=== PATIENT | female | born 1985 | race Caucasian/White ===

== ENCOUNTER → 2018-07-29 | Outpatient (CLI) | payer BC | LOC: FIMAGING 12:51 | PROVIDERS: ATTEND Advanced Practice Midwife | DX: O09.522 Supervision of elderly multigravida, second trimester (principal); O09.292 Supervision of pregnancy with other poor reproductive or obstetric history, second trimester; Z3A.19 19 weeks gestation of pregnancy ==

== ENCOUNTER 2018-12-12 16:37 | Inpatient (IN) | payer BC ==
[2018-12-12] MEDS ORDERED: EPSOM SALT 454 GM TP PRN (17:18)
[2018-12-12] MEDS ORDERED: LR 1,000 ML IV PRN (17:18)
[2018-12-12] MEDS ORDERED: OLIVE OIL 118 ML BTL MISC PRN (17:18)
[2018-12-12] MEDS ORDERED: IBUPROFEN 600 MG TAB PO PRN (17:18)
[2018-12-12] MEDS ORDERED: MISOPROSTOL 200 MCG TAB PR PRN (17:18)
[2018-12-12] MEDS ORDERED: LIDOCAINE 1% 300 MG/30 ML SDV SC PRN (17:18)
[2018-12-12] MEDS ORDERED: OXYTOCIN/RINGERS LACTATE 1,000 ML IV PRN (17:18)
[2018-12-12 17:51] LABS: PLATELET COUNT 161 10^3/uL (150-400)
[2018-12-12] MEDS ORDERED: OXYTOCIN 10 UNIT/ML VIAL ONE (18:30)
[2018-12-12] MEDS ORDERED: AMMONIA AROMATIC 1 EACH AMP IH ONE (18:30)
[2018-12-12] MEDS ORDERED: TERBUTALINE SULFATE 1 MG/ML VIAL ONE (18:30)
--- NOTE | 2018-12-12 19:05 | PDGENHP ---
History and Physical History and Physical: Care: [facility] HPI: Patient is a 33 yo G3 P 2 @ 39 weeks that presents to L&D with complaints of elevated blood pressure in the office and +1 protein; 4-5 cm in the office. States she had a lot of contractions last night that were getting stronger but then went away. EDC: 12/19/2018 which is based on an Ultrasound at 8 weeks. Her is complicated by: hx of previous LTCS for a breech presentation followed by a successful vaginal and AMA. Surgical report was reviewed and confirmed LTCS, consultation completed with OB @ 35 weeks and consents were signed Review of Systems: Constitutional: Denies any fever, chills, or fatigue HEENT: denies any visual changes, difficulty swallowing, hearing loss Cardiovascular: Denies any chest pain, palpitations, leg swelling Respiratory: denies any cough, wheezing, or shortness of breathe GI: Denies any nausea, vomiting, diarrhea, constipation : denies any dysuria, urgency, frequency, vaginal bleeding Musculoskeletal: denies any muscle or bone pain Skin: denies any rashes Neuro: denies any headache, seizures, lightheadedness, dizziness, or loss of consciousness Psychiatric: denies any depression, anxiety, or SI/HI thoughts HISTORY: Previous OB history: LTCS for breech; successful vaginal Past medical history: None significant Past surgical history: wisdom teeth Social: Denies any alcohol, tobacco, or drug use. Family history: Not relevant Medications: PNV [ ] Allergies (list reaction): Neosporin LABS: Rh: A+ ABS: Neg Rubella: Immune HbsAg: NR HIV: NR VDRL: NR 1hr: 95 GC: Neg Chlamydia: Neg Pap: Normal 2018 per pt GBS: neg BMI: (prepreg) 22 PHYSICAL EXAM: Constitutional: WN, A&Ox3 HEENT: normocephalic atraumatic, supple Skin: Warm, dry, intact Heart: RRR, no murmur Chest: CTA-B Abdomen: Soft, nontender, gravid SVE: 5/70/-1; after consent given membranes ruptured with scant amount of clear fluid returned Extremities: neg edema, negative homans sign Neuro: grossly normal Psych: normal affect assessment: FHT baseline 130 to 150 + accels, initially variable decels noted which has since resolved, moderate variability, + accels Contractions: toco q irregular Assessment: 1) 33 yo G 3 P 2 with IUP@ 39 2) latent labor; advanced dilatation; hx of LTCS 3) GBS neg 4) Cat 2 to 1 FHR tracing Plan: 1) Admit to L&D 2) Dr Hooker notified of admit and POC; will be staying in house 3) Augment labor with SROM; consider pitocin if indicated 4) Anticipate
[2018-12-12] MEDS ORDERED: ONDANSETRON 4 MG/2 ML VIAL ONE (19:26)
[2018-12-12] MEDS ORDERED: BUPIVACAINE 0.25% 10 ML SDV ONE (19:27)
[2018-12-12] MEDS ORDERED: PHENYLEPHRINE HCL 100 MCG/ML SYR ONE (19:27)
[2018-12-12] MEDS ORDERED: PHENYLEPHRINE HCL 100 MCG/ML SYR IVP PRN (19:28)
--- NOTE | 2018-12-12 19:29 | PREANESOB ---
Obstetric Pre-Anesthesia Info - General Info : 3 Para: 2 MADELEINE: 12/19/18 Gestational Age: 39 week(s) and 0 day(s) - Info Status: Full Term Monitors: External FHR Pattern: Reassuring - Labor Status Cervical Dilation per last OB SVE: 5 Indications for Labor Analgesia: Pain Control Labor Epidural: Proposed Anesthesia Allergies/Adverse Reactions: Allergy/AdvReac Type Severity Reaction Status Date / Time bacitracin Allergy Verified 12/12/18 17:49 [From Neosporin ([id number])] neomycin Allergy Verified 12/12/18 17:49 [From Neosporin ([id number])] polymyxin B Allergy Verified 12/12/18 17:49 [From Neosporin ([id number])] Home Medications: Medication Instructions Recorded CALCIUM CARBONATE/VITAMIN D3 600 mg PO DAILY 07/10/12 [CALCIUM + D 600 MG TABLET] Vit/Iron Fum/Folic AC 1 each PO 07/10/12 [ Vitamin Formula Tb] Herbals/Supplements -Info Only 05/27/14 Hydrocodone/APAP 5/325 [[place] 1 - 2 tab PO Q4 PRN #10 tab 05/30/14 5/325 (*)] Ibuprofen [Motrin (*)] 600 mg PO Q6 PRN #1 tab 05/30/14 Visit Medications: Generic Name Dose Route Start Last Admin Trade Name Freq PRN Reason Stop Dose Admin Lactated Ringer's 1,000 mls @ 0 mls/hr 12/12/18 17:18 Lr IV 12/13/18 17:17 PRN PRN SEE PROTOCOL CONDITIONS Protocol Per Protocol Oxytocin/Lactated Ringer's 1,000 mls @ 125 mls/hr 12/12/18 17:18 Pitocin 20 Units/Lr (Premix) IV PRN PRN Post bleeding Ibuprofen 600 mg 12/12/18 17:18 Motrin PO ONCE PRN post , pain Lidocaine HCl 300 mg 12/12/18 17:18 Lidocaine Hcl 1% SC 06/10/19 17:17 ONCE PRN episiotomy Magnesium Sulfate 454 gm 12/12/18 17:18 Epsom Salt TP 06/10/19 17:17 Q1H PRN perineal discomfort Misoprostol 800 - 1,000 mcg 12/12/18 17:18 Cytotec TX ONCE PRN Vaginal Atony/Bleeding [place] Oil 118 ml 12/12/18 17:18 Sweet Oil MISC 06/10/19 17:17 ONCE PRN perineal massage Discontinued Medications Generic Name Dose Route Start Last Admin Trade Name Freq PRN Reason Stop Dose Admin Ammonia (Aromatic Spirit) Confirm 12/12/18 18:30 Ammonia Aromatic Administered 12/12/18 18:31 Dose 1 each IH .STK-MED ONE Bupivacaine HCl Confirm 12/12/18 19:27 Sensorcaine 0.25% Sdv Administered 12/12/18 19:28 Dose 10 ml .ROUTE .STK-MED ONE Ondansetron HCl Confirm 12/12/18 19:26 Zofran Administered 12/12/18 19:27 Dose 4 mg .ROUTE .STK-MED ONE Oxytocin Confirm 12/12/18 18:30 Pitocin Administered 12/12/18 18:31 Dose 30 unit .ROUTE .STK-MED ONE Phenylephrine HCl Confirm 12/12/18 19:27 Neosynephrine Administered 12/12/18 19:28 Dose 1,000 mcg .ROUTE .STK-MED ONE Terbutaline Sulfate Confirm 12/12/18 18:30 Brethine Administered 12/12/18 18:31 Dose 1 mg .ROUTE .STK-MED ONE - Vital Signs Height/Weight (Nursing): Height 167.64 cm Weight 73.936 kg - Focused Exam Neck exam: FROM Mallampati Score: Class 2 Mouth exam: normal dental/mouth exam Pulmonary: no respiratory distress, no rales or rhonchi, clear to auscultation Cardiovascular: regular rate and rhythym, no murmur, rub, or gallop Labs: 12/12/18 17:00 Patient ABO/Rh A POSITIVE 12/12/18 17:00
[2018-12-12] MEDS ORDERED: LR 500 ML IV SCH (19:30)
[2018-12-12] MEDS ORDERED: fentaNYL 2MCG/ML/BUP 0.1% RTU 100 ML EP SCH (19:30)
[2018-12-12] MEDS ORDERED: ONDANSETRON 4 MG/2 ML VIAL IVP ONE (19:30)
--- NOTE | 2018-12-12 21:03 | OBPROG ---
Labor Progress Note Assessment/Plan: Assessment: Plan: 12/12/18 21:05 Active labor progressing P) Expectant management Anticipate Subjective/Intrapartum Course: 12/12/18 21:00 Comfortable with an epidural in place. Starting to feel some mild pressure. Objective: 12/12/18 17:00 Patient ABO/Rh A POSITIVE 12/12/18 17:00 - SVE Dilation (cm): 8 Effacement (%): 100 Station: 0 Membranes: AROM Amniotic Fluid Color: Clear - Contraction Pattern Assessment Current Contraction Pattern: Regular - FHR Assessment Singh FHR (bpm): 120 (no decels; + accels baseline 120-130) FHR Pattern Variability: Moderate FHR Category: 1 Oxytocin Orders Assessment - Pre-Induction/Augmentation Assessment Gestational Age: 39 week(s) and 0 day(s) ICD10 Worksheet Patient Problems: Problems Problem Status Onset Gestational thrombocytopenia Acute History of delivery Acute Spontaneous vaginal delivery Acute (vaginal after ) Acute
--- NOTE | 2018-12-12 22:38 | OBDEL ---
Info Type: Vaginal Presentation at Delivery: Vertex L&D Analgesia/Anesthesia Type: Epidural GBS+: No Intrapartum Medications: Discontinued Medications Generic Name Dose Route Start Last Admin Trade Name Henry PRN Reason Stop Dose Admin Ondansetron HCl 4 mg 12/12/18 19:30 12/12/18 19:35 Zofran IVP 12/12/18 19:31 4 mg ONCE ONE Administration - Hospital Course Intrapartum: 12/12/18 21:00 Comfortable with an epidural in place. Starting to feel some mild pressure. Indications for Delivery: Advanced Cervical Dilation Vaginal Delivery - Delivery Provider Delivery Physician/CNM: Fiordaliza Cox - Labor and Delivery Onset of Contractions Date: 12/12/18 Onset of Contractions Time: 17:15 Onset of Contractions Type: Augmented (SROM) Rupture of Membranes Date: 12/12/18 Rupture of Membranes Time: 18:13 Rupture of Membranes Type: Artificial Amniotic Fluid Color: Clear Dilation Complete Date: 12/12/18 Dilation Complete Time: 22:00 Placenta Delivery Date: 12/12/18 Placenta Delivery Time: 22:25 Total Hours of Labor: 5 Laceration: 1st Degree Repair: 3-0, Vicryl Vaginal Sponge Count Correct: Yes Vaginal Needle Count Correct: Yes Vaginal Sweep Performed: Yes EBL: 250 Delivery Events: None Delivery Comment: Pt pushed strongly and effectively over 15 minutes to the of a vigorous female infant in an OA to ROT presentation. The crying baby was immediately put on the mothers abdomen and stimulated. The cord was clamped x 2 and cut by the FOB. The placenta delivered complete with intact membranes and a three vessel cord. The perineum, vagina, and periurethral area was examined. A 1 degree gaping perineal lacration was noted. Repaired for approximation with 3.0 vicryl. The fundus massaged firm, bleeding minimal. EBL 250 ml - Medications Labor Augmentation/Induction Methods Used: Other (Specify) (AROM) Labor Augmentation/Induction Indication: Advance Dilation [place] Data MADELEINE: 12/19/18 Gestational Age: 39 week(s) and 0 day(s) Singh Delivery Date: 12/12/18 Delivery Time: 22:15 Sex of : Female Score (1 Min): 8 Score (5 Min): 9 ICD10 Worksheet Patient Problems: Problems Problem Status Onset Gestational thrombocytopenia Acute History of delivery Acute Spontaneous vaginal delivery Acute (vaginal after ) Acute - ICD10 Problem Qualifiers (1) (vaginal after )
[2018-12-12] MEDS ORDERED: ACETAMINOPHEN 325 MG TAB PO PRN (22:44)
[2018-12-12] MEDS ORDERED: HYDROCORTISONE 0.5% CREAM TP PRN (22:44)
[2018-12-13] MEDS: IBUPROFEN 600 MG TAB PO SCH ×5 (05:24→23:05)
[2018-12-13] MEDS: DOCUSATE SODIUM 100 MG CAP PO PRN ×2 (08:56→18:05)
--- NOTE | 2018-12-13 11:26 | OBPP ---
Progress Note Assessment/Plan: Assessment: 1. PP day 1 2. 3. Breast feeding well. 4. Elevated BP. Plan: 1. Plan d/c home tomorrow. 12/13/18 11:20 Subjective/ Course: 12/13/18 11:21 Pain well controlled with PO medications. Denies symptoms of pre-eclampsia. Objective: 12/12/18 17:00 Patient ABO/Rh A POSITIVE 12/12/18 17:00 Temp Pulse Resp BP Pulse Ox 36.6 C 51 L 18 143/93 H 93 12/13/18 08:00 12/13/18 08:00 12/13/18 08:00 12/13/18 08:00 12/13/18 08:00 VSS, bleeding wnl. Uterine Position/Fundal Height: At Umbilicus Uterine Tone: Firm
--- NOTE | 2018-12-13 14:56 | POSTANESTH ---
Post Anesthetic Evaluation Cardiovascular Status: Normal, Stable Respiratory Status: Normal, Stable Level of Consciousness/Mental Status: Can Participate in Eval, Alert and Oriented Pain Control: Adequate, Prn Tx Ordered Nausea/Vomiting Control: Adequate, Prn Tx Ordered Complications Possibly Related to Anesthesia: None Noted (Placenta Delivery Time 12/12/18 22:59 same as Epidural End Time)
[2018-12-14] MEDS: IBUPROFEN 600 MG TAB PO SCH ×2 (06:02→11:36)
[2018-12-14] MEDS: DOCUSATE SODIUM 100 MG CAP PO PRN (09:32)
[2018-12-14 09:36] VITALS: BP 119/77
--- NOTE | 2018-12-14 10:37 | OBGCSDC ---
General Delivery Information - General Info : 3 Para: 3 Abortions: 0 Type: Vaginal L&D Analgesia/Anesthesia Type: Epidural Admission Date: 12/12/18 Labs: Patient ABO/Rh A POSITIVE 12/12/18 17:00 Hct 39.6 % (38.0-47.0) 12/12/18 17:00 - Hospital Course Intrapartum: 12/12/18 21:00 Comfortable with an epidural in place. Starting to feel some mild pressure. : 12/13/18 11:21 Pain well controlled with PO medications. Denies symptoms of pre-eclampsia. 12/14/18 10:36 Breast feeding well. VSS. Bleeding is minimal. Vaginal - Delivery Provider Delivery Physician/CNM: Fiordaliza Cox - Diagnosis Labor: Augmented (SROM) Rupture of Membranes Type: Artificial Amniotic Fluid Color: Clear Laceration: 1st Degree Repair: 3-0, Vicryl Delivery Events: None - Delivery EBL: 250 [place] Data MADELEINE: 12/19/18 Gestational Age: 39 week(s) and 2 day(s) Singh Delivery Date: 12/12/18 Delivery Time: 22:15 Sex of Infant: Female [place] Weight (gm): 3202 g Score (1 Min): 9 Score (5 Min): 9 Discharge Information - Discharge Information Instruction/Follow Up: Two Weeks, Four Weeks, Six Weeks
== END 2018-12-14 12:30 | disposition home or self-care (01) | DRG 807 ==
LOC: FLD 16:37 → FOB 12-13 02:09
PROVIDERS: ADMIT Advanced Practice Midwife; ATTEND Advanced Practice Midwife
DX: O28.9 Unspecified abnormal findings on antenatal screening of mother (principal); R03.0 Elevated blood-pressure reading, without diagnosis of hypertension; O70.0 First degree perineal laceration during delivery; O34.219 Maternal care for unspecified type scar from previous cesarean delivery; Z3A.39 39 weeks gestation of pregnancy; Z37.0 Single live birth
CPT/HCPCS: J2370; J2405; J2590; J3105